=== PATIENT | female | born 1975 | race Caucasian/White ===

== ENCOUNTER 2016-12-21 23:15 | Emergency (ER) ==
[2016-12-21 23:22] VITALS: BP 127/90
--- NOTE | 2016-12-22 00:02 | PROVIDER DOCUMENTATION ---
HPI-Female /OB/Breast - General Chief Complaint: Female Stated Complaint: LOWER BACK PAIN, FEMALE Time Seen by Provider: 12/21/16 23:57 Source: reports: patient Allergies/Adverse Reactions: Patient Allergies Allergy/AdvReac Type Severity Reaction Status Date / Time butorphanol Allergy Severe ANAPHYLAXIS Verified 12/22/16 02:07 Penicillins Allergy Severe SHORTNESS Verified 12/22/16 02:07 OF BREATH Sulfa (Sulfonamide Allergy Severe ANAPHYLAXIS Verified 12/22/16 02:07 Antibiotics) [Sulfa(Sulfonamide Antibiotics)] butorphanol tartrate * Allergy Intermediate SHORTNESS Verified 12/22/16 02:07 [From Stadol] OF BREATH ketorolac tromethamine * Allergy Intermediate HIVES Verified 12/22/16 02:07 [From Toradol] latex AdvReac Unknown Verified 12/22/16 02:07 Home Medications: Home Medication List Medication Instructions Recorded Confirmed Last Taken Type Albuterol Sulfate Inhaler 2 puff INH [id number] #1 inhaler 11/28/16 1 Day Ago Rx [Ventolin Hfa] Albuterol [Albuterol Neb] 2.5 mg INH Q4H PRN PRN #1 neb 11/28/16 1 Day Ago Rx - History of Present Illness-Female /OB Nature of Presenting Problem: 41 y/o WF c/o vaginal bleeding, back pain, numbness, vaginal pain, L flank pain x 1 day. Pt states that she has gone through 10 pads in 10 hours. States that couldn't feel bilat LE earlier, but states she can feel them now, but reports that it is decreased. States hx of cervical cancer; managed by colposcopy clinic, but cannot state the name of any of the doctors. States that she was seen by them last month; reports will see them on 30 December for recheck. Denies any chemo or radiation. States has hx of kidney stones and thinks she may have a kidney stone. Review of Systems - Adult - REVIEW OF SYSTEMS - ADULT Constitutional: reports: no symptoms reported. denies: chills, fever Eyes: reports: no symptoms reported. denies: blurred vision, double vision Ears, Nose, Mouth & Throat: reports: no symptoms reported. denies: ear pain, nose pain Cardiovascular: reports: no symptoms reported. denies: chest pain, palpitations Respiratory: reports: no symptoms reported. denies: dyspnea on exertion, shortness of breath Gastrointestinal: reports: no symptoms reported. denies: abdominal pain, nausea , vomiting Genitourinary: reports: see HPI, other. denies: dysuria, frequency Musculoskeletal: reports: no symptoms reported. denies: joint pain, joint swelling Integumentary: reports: no symptoms reported. denies: nail changes, rash Neurological: reports: no symptoms reported. denies: numbness, paresthesia Psychiatric: reports: no symptoms reported Endocrine: reports: no symptoms reported. denies: cold intolerance, heat intolerance Hematologic/Lymphatic: reports: no symptoms reported. denies: easy bruising, prolonged bleeding Allergic/Immunologic: reports: no symptoms reported All Other Systems: Reviewed and Negative Past History - Adult - PAST MEDICAL HISTORY-ADULT Review of Records: reports: Nursing Assessment Review, Medications Reviewed Major Childhood Illnesses: reports: denies history Cardiovascular: reports: hyperlipidemia Respiratory: reports: asthma, COPD, sleep apnea Gastrointestinal: reports: GERD Obstetrical/Gynecological: reports: uterine/ovarian cancer (cervical cancer) Genitourinary: reports: denies history Musculoskeletal: reports: chronic pain, intervertebral disc disease Neurological: Psychiatric: reports: anxiety, depression, psychiatric problems (panic attacks) Endocrine/Immune: reports: denies history Other Conditions: reports: denies history - PRIOR SURGERIES/PROCEDURES Surgical/Procedure History: reports: appendectomy, cholecystectomy, back/neck - PRIOR HOSPITALIZATIONS Prior Hospitalizations: reports: none - IMMUNIZATION STATUS Childhood Immunizations: See Nurse Assessment Flu Vaccine: See Nurse Assessment - FAMILY HISTORY Family History: reviewed, not pertinent - SOCIAL HISTORY Smoking: quit less than 1 year Alcohol Use Frequency: never Physical Exam-General - PHYSICAL EXAM-ADULT Initial Vital Signs Reviewed: Yes - CONSTITUTIONAL General Appearance: alert, mild distress - EYES Eyes: pink conjunctivae - HEAD, EARS, NOSE, MOUTH & THROAT HENMT: normocephalic/atraumatic, moist mucous membranes - NECK Neck: normal inspection - RESPIRATORY Respiratory: no respiratory distress, no accessory muscle use, crackles. negative: rales, rhonchi, stridor, wheezing - CARDIOVASCULAR Cardiovascular: tachycardia. negative: bradycardia - GASTROINTESTINAL (ABDOMEN) Abdominal Exam: normal bowel sounds, soft, tenderness (LLQ). negative: distended, guarding, rigid - MUSCULOSKELETAL Back Exam: normal inspection, CVA tenderness (mild, L) Extremity: normal inspection. negative: abnormal NV exam - SKIN Integumentary: normal color, normal turgor, warm/dry - NEUROLOGIC Neurologic: negative: aphasia, motor weakness, sensory deficit - PSYCHIATRIC Psych/Mental Status: normal mood/affect, normal thought content, normal thought process, oriented x 3 Progress - PLAN OF CARE/RESULTS Progress/Plan/Lab Results: Orders Category Date Time Status NPO Diet 12/21/16 23:50 Completed Vital Signs Temp Pulse Resp BP Pulse Ox 12/21/16 23:22 97.7 F 108 H 20 127/90 99 butorphanol Allergy (Severe, Verified 11/28/16 15:57) ANAPHYLAXIS anaphylaxis Penicillins Allergy (Severe, Verified 11/28/16 15:57) SHORTNESS OF BREATH Sulfa (Sulfonamide Antibiotics) [Sulfa(Sulfonamide Antibiotics)] Allergy (Severe , Verified 11/28/16 15:57) ANAPHYLAXIS butorphanol tartrate * [From Stadol] Allergy (Intermediate, Verified 11/28/16 15 :57) SHORTNESS OF BREATH ketorolac tromethamine * [From Toradol] Allergy (Intermediate, Verified 15:57) HIVES latex Adverse Reaction (Verified 11/28/16 15:57) Unknown Albuterol Sulfate Inhaler [Ventolin Hfa] 2 puff INH [id number] #1 inhaler 11/28/16 Albuterol [Albuterol Neb] 2.5 mg INH Q4H PRN PRN #1 neb 11/28/16 Pt was initially seen and hx/PE performed in traige room 2 and sent out to [facility] while preliminary labwork was completed and waiting on exam room. Pt eloped prior to bloodwork being drawn; hr receptionist witnessed her get out of her wheelchair and walk out. Departure - Departure Time of Disposition Order: 00:15 DIAGNOSIS: Abdominal pain Qualifiers: Abdominal location: unspecified location Qualified Code(s): R10.9 - Unspecified abdominal pain Disposition: ELOPEMENT 07 Certified Medical Emergency: Emergent Condition: Stable Referrals: Anitra Garcia [Primary Care Provider] - Attestation - Physician/ HINA Attestation Patient care was provided by Advanced Practice Provider:: Yes Advanced Practice Provider:: Yue Barreto Advanced Practice Provider documentation review:: The Mid-level provider documentation, treatment plan and medical decision making was reviewed by the physician who agrees with all treatment and medical decision making by the MLP.
== END 2016-12-22 00:34 | disposition left against medical advice (07) ==
LOC: ED 23:15
DX: R10.32 Left lower quadrant pain (principal); N93.9 Abnormal uterine and vaginal bleeding, unspecified; M54.9 Dorsalgia, unspecified; R20.0 Anesthesia of skin; R10.2 Pelvic and perineal pain; E78.5 Hyperlipidemia, unspecified; J44.9 Chronic obstructive pulmonary disease, unspecified; C53.9 Malignant neoplasm of cervix uteri, unspecified; G89.29 Other chronic pain; Z87.891 Personal history of nicotine dependence; Z79.51 Long term (current) use of inhaled steroids

== ENCOUNTER 2016-12-22 00:47 | Emergency (ER) ==
[2016-12-22 02:07] VITALS: BP 139/83
[2016-12-22 02:15] LABS: URINE CULTURE PL NEEDED? NO; URINE SOURCE CLEAN CATCH
[2016-12-22 02:25] LABS: MANUAL DIFF NEEDED? NO
[2016-12-22 02:28] LABS: BILIRUBIN URINE NEGATIVE (NEGATIVE); BLOOD URINE 4+ (NEGATIVE); CLARITY CLEAR (CLEAR); COLOR YELLOW; GLUCOSE URINE NEGATIVE (NEGATIVE); LEUKOCYTES URINE NEGATIVE (NEGATIVE); NITRITE URINE NEGATIVE (NEGATIVE); PROTEIN URINE NEGATIVE (NEGATIVE); UROBILINOGEN URINE NORMAL
[2016-12-22 02:36] LABS: URINE EPITHELIAL CELLS <10 /HPF (<10); URINE RBC TNTC /HPF (<10); URINE WBC <10 /HPF (<10)
--- NOTE | 2016-12-22 02:36 | PROVIDER DOCUMENTATION ---
HPI-General Adult - General Source: patient - History of Present Illness -Gen Adult Nature of Presenting Problems: 41 YOF WITH HX OF KIDNEY STONES, PRESENTS TO ED WITH C/O PT STATES LT SIDE FLANK PAIN THAT HAS BEEN PRESENT ALL DAY LONG. Location of Pain/Injury: reports: back (LT) Pain Radiation: reports: flank (L) Quality of Pain: reports: aching Severity: reports: moderate Onset/Duration: reports: 4-6 hours ago Timing: reports: still present Modifying Factors: improves with: nothing Similar Symptoms Previously?: No Recently seen or treated by another doctor?: No <Vineet Mcfadden - Last Filed: 12/22/16 02:31> <Frandy Jones - Last Filed: 12/22/16 04:21> - General Chief Complaint: Back Pain Stated Complaint: LOW BACK PAIN Time Seen by Provider: 12/22/16 02:10 Allergies/Adverse Reactions: Patient Allergies Allergy/AdvReac Type Severity Reaction Status Date / Time butorphanol Allergy Severe ANAPHYLAXIS Verified 12/22/16 02:07 Penicillins Allergy Severe SHORTNESS Verified 12/22/16 02:07 OF BREATH Sulfa (Sulfonamide Allergy Severe ANAPHYLAXIS Verified 12/22/16 02:07 Antibiotics) [Sulfa(Sulfonamide Antibiotics)] butorphanol tartrate * Allergy Intermediate SHORTNESS Verified 12/22/16 02:07 [From Stadol] OF BREATH ketorolac tromethamine * Allergy Intermediate HIVES Verified 12/22/16 02:07 [From Toradol] latex AdvReac Unknown Verified 12/22/16 02:07 Home Medications: Home Medication List Medication Instructions Recorded Confirmed Last Taken Type Albuterol Sulfate Inhaler 2 puff INH [id number] #1 inhaler 11/28/16 1 Day Ago Rx [Ventolin Hfa] Albuterol [Albuterol Neb] 2.5 mg INH Q4H PRN PRN #1 neb 11/28/16 1 Day Ago Rx Review of Systems - Adult - REVIEW OF SYSTEMS - ADULT Constitutional: denies: chills, fever Eyes: reports: no symptoms reported Ears, Nose, Mouth & Throat: reports: no symptoms reported Cardiovascular: denies: chest pain, palpitations, syncope Respiratory: denies: cough, shortness of breath, wheezing Gastrointestinal: denies: abdominal pain, diarrhea, nausea, vomiting Genitourinary: reports: flank pain (LT) Musculoskeletal: denies: back pain, neck pain Integumentary: reports: no symptoms reported Neurological: denies: dizziness/vertigo, headache/migraines, syncope Psychiatric: reports: no symptoms reported Endocrine: reports: no symptoms reported Hematologic/Lymphatic: reports: no symptoms reported Allergic/Immunologic: reports: no symptoms reported All Other Systems: Reviewed and Negative <Vineet Mcfadden Last Filed: 12/22/16 02:31> Past History - Adult - PAST MEDICAL HISTORY-ADULT Review of Records: reports: Nursing Assessment Review, Medications Reviewed Cardiovascular: reports: hyperlipidemia Respiratory: reports: asthma, COPD, sleep apnea Gastrointestinal: reports: GERD Obstetrical/Gynecological: reports: uterine/ovarian cancer (cervical cancer) Musculoskeletal: reports: chronic pain, intervertebral disc disease Neurological: Psychiatric: reports: anxiety, depression, psychiatric problems (panic attacks) - PRIOR SURGERIES/PROCEDURES Surgical/Procedure History: reports: appendectomy, cholecystectomy, back/neck - PRIOR HOSPITALIZATIONS Prior Hospitalizations: reports: none - IMMUNIZATION STATUS Childhood Immunizations: See Nurse Assessment Flu Vaccine: See Nurse Assessment - FAMILY HISTORY Family History: reviewed, not pertinent - SOCIAL HISTORY Smoking: cigarettes, less than 1 pack/day Provider spent 3-5 mins advising pt. on dangers of tobacco.: Discussed manners to quit use, and f/u contacts for add'l counseling. Substance Use: denies Alcohol Use Frequency: never Living Situation: family <Vineet Mcfadden Filed: 12/22/16 02:31> Physical Exam-General - CONSTITUTIONAL General Appearance: alert, mild distress - EYES Eyes: PERRL/EOMI, pink conjunctivae - HEAD, EARS, NOSE, MOUTH & THROAT HENMT: normocephalic/atraumatic, moist mucous membranes - NECK Neck: non-tender, full range of motion, supple - RESPIRATORY Respiratory: chest non-tender, lungs clear, normal breath sounds - CARDIOVASCULAR Cardiovascular: normal peripheral pulses, tachycardia - GASTROINTESTINAL (ABDOMEN) Abdominal Exam: normal bowel sounds, non tender - LYMPHATIC Lymphatic: no adenopathy - MUSCULOSKELETAL Back Exam: normal inspection, no CVA tenderness, no vertebral tenderness Extremity: normal range of motion, non-tender - SKIN Integumentary: normal color, normal turgor, warm/dry - NEUROLOGIC Neurologic: grossly normal - PSYCHIATRIC Psych/Mental Status: oriented x 3 <Vineet Mcfadden - Last Filed: 12/22/16 02:31> Departure <Vineet Mcfadden - Last Filed: 12/22/16 02:31> - Departure Time of Disposition Order: 04:15 Certified Medical Emergency: Emergent <Frandy Jones - Last Filed: 12/22/16 04:21> - Departure DIAGNOSIS: Abdominal pain Disposition: ELOPEMENT 07 Condition: Stable Attestation - Scribe Verification/Attestation Scribe:: Vineet Mcfadden Acting as Scribe for:: Frandy Jones Scribe documention review:: This chart was documented by a scribe and accurately reflects the service the provider performed and the decisions made by the provider. <Vineet Mcfadden - Last Filed: 12/22/16 02:31> Physician Attestation
[2016-12-22 02:45] LABS: BASO% 0.4 % (0.0-0.8); EOS# 0.26 X1000 (0.0-0.7); EOS% 2.8 % (0.0-10.0); HEMOGLOBIN 14.4 g/dL (12.0-16.0); IMM GRAN# 0.02 X1000 (0.0-0.04); IMM GRAN% 0.2 % (0.0-0.5); LYMPH# 3.91 X1000 (1.2-3.4); LYMPH% 42.8 % (20.5-51.1); MCH 31.1 PG (27-31); MCHC 33.5 g/dL (33-37); MCV 92.9 FL (81-99); MONO% 7.7 % (1.7-9.3); NEUT% 46.1 % (42.2-75.2); PLT 277 X1000 (130-400); RBC 4.63 XMIL (4.2-5.4)
[2016-12-22 02:46] LABS: UR AMPHETAMINES QUAL NONE DETECTED (NONE DETECT); UR BARBITUATES QUAL NONE DETECTED (NONE DETECT); UR BENZODIAZEPIN QUAL PRESUMPTIVE POSITIVE (NONE DETECT); UR CANNABINOIDS QUAL NONE DETECTED (NONE DETECT); UR COCAINE QUAL NONE DETECTED (NONE DETECT); UR MDMA QUAL NONE DETECTED (NONE DETECT); UR METHADONE QUAL NONE DETECTED (NONE DETECT); UR METHAMPHETAMINE QUAL NONE DETECTED (NONE DETECT); UR OPIATES QUAL PRESUMPTIVE POSITIVE (NONE DETECT); UR OXYCODONE QUAL NONE DETECTED (NONE DETECT); UR PCP QUAL NONE DETECTED (NONE DETECT); UR TCA QUAL NONE DETECTED (NONE DETECT)
[2016-12-22 02:50] LABS: AGAP 12; ALBUMIN 3.9 g/dL (3.5-5.0); ALKALINE PHOSPHATASE 91 U/L (32-104); AMYLASE 51 U/L (20-200); BUN 7 mg/dL (8-22); CHLORIDE 104 mmol/L (98-107); COSMO 276; GOT 12 U/L (10-30); GPT 15 U/L (10-36); LIPASE 20 U/L (13-60); POTASSIUM 4.2 mmol/L (3.5-5.1); SODIUM 139 mmol/L (136-145); TCO2 23 mmol/L (25-35); TOTAL PROTEIN 6.9 g/dL (6.3-8.3)
== END 2016-12-22 04:21 | disposition left against medical advice (07) ==
LOC: P.ED 00:47
DX: R10.9 Unspecified abdominal pain (principal); M54.5 Low back pain; E78.5 Hyperlipidemia, unspecified; J44.9 Chronic obstructive pulmonary disease, unspecified; K21.9 Gastro-esophageal reflux disease without esophagitis; C53.9 Malignant neoplasm of cervix uteri, unspecified; G89.29 Other chronic pain; F41.9 Anxiety disorder, unspecified; F32.9 Major depressive disorder, single episode, unspecified; F41.0 Panic disorder [episodic paroxysmal anxiety]; F17.210 Nicotine dependence, cigarettes, uncomplicated; Z71.6 Tobacco abuse counseling; R00.0 Tachycardia, unspecified; Z79.51 Long term (current) use of inhaled steroids
CPT/HCPCS: 80053; 80305; 81001; 82150; 83690; 85025; 99283

== ENCOUNTER 2019-11-01 21:39 | Inpatient (IN) ==
[2019-11-01] MEDS ORDERED: DUONEB (A & A) INH ONE (21:55)
--- NOTE | 2019-11-01 22:20 | PROVIDER DOCUMENTATION ---
HPI-Respiratory General - General Chief Complaint: Asthma Attack Stated Complaint: SOB Time Seen by Provider: 11/01/19 21:54 Source: patient Allergies/Adverse Reactions: Patient Allergies Allergy/AdvReac Type Severity Reaction Status Date / Time butorphanol Allergy Severe ANAPHYLAXIS Verified 11/01/19 21:54 Penicillins Allergy Severe SHORTNESS Verified 11/01/19 21:54 OF BREATH Sulfa (Sulfonamide Allergy Severe ANAPHYLAXIS Verified 11/01/19 21:54 Antibiotics) [Sulfa(Sulfonamide Antibiotics)] butorphanol tartrate * Allergy Intermediate SHORTNESS Verified 11/01/19 21:54 [From Stadol] OF BREATH iodine Allergy Intermediate SHORTNESS Verified 11/01/19 21:54 OF BREATH ketorolac tromethamine * Allergy Intermediate HIVES Verified 11/01/19 21:54 [From Toradol] Bleach (Sodium Hypochlorite) Allergy ANAPHYLAXIS Verified 11/01/19 21:54 latex AdvReac Mild HIVES Verified 11/01/19 21:54 Home Medications: Home Medication List Medication Instructions Recorded Confirmed Last Taken Type Albuterol Sulfate 2.5 mg INHALATION Q4H PRN PRN #30 06/15/19 11/01/19 07/01/19 Rx vial.neb Albuterol Sulfate Inhaler 2 puff INH PRN PRN 07/03/19 11/01/19 07/02/19 History [Ventolin Hfa] - History of Present Illness-Resp Nature of Presenting Problem: 44 YOF WITH PMH OF COPD, ASTHMA PRESENTS WITH C/O WHEEZINS, SOB, COUGH WITH GREEN BROWN SPUTUM, VICK X 3 DAYS. DAUGHTER HAS THE SAME SYMPTOMS Quality of Pain: reports: none Severity in ED: reports: moderate Onset/Duration: reports: 3 days ago Timing: reports: still present Cough Quality/Degree: reports: moderate Episode Frequency: frequent episodes Current Respiratory Medication Therapy: Initiated none, Initiated steroid inhaler Modifying Factors: improves with: rest. worse with: exertion, coughing Associated Symptoms: reports: cough, short of breath, wheezing Similar Symptoms Previously?: No Recently seen or treated by another doctor?: No Review of Systems - Adult - REVIEW OF SYSTEMS - ADULT Constitutional: reports: no symptoms reported. denies: see HPI, chills, fever, fatique, night sweats, weight gain, weight loss, other Eyes: reports: no symptoms reported. denies: see HPI, discharge, dry eyes, decreased vision, blurred vision, double vision, eye pain, redness, other Ears, Nose, Mouth & Throat: reports: no symptoms reported. denies: see HPI, ear discharge, ear pain, hearing loss, tinnitus, epistaxis, sinus problem, nose pain, loose teeth, mouth/dental pain, mouth swelling, hoarseness, throat pain, t hroat swelling, other Cardiovascular: reports: no symptoms reported. denies: see HPI, chest pain, edema, heart murmur, irregular heart rate, orthopnea, palpitations, poor cir culation, PND, syncope, other Respiratory: reports: see HPI, cough, shortness of breath, wheezing. denies: no symptoms reported, chronic cough, dyspnea on exertion, excessive sputum production, hemoptysis, pleurisy, other Gastrointestinal: reports: no symptoms reported. denies: see HPI, abdominal pain, hematemesis, constipation, diarrhea, difficulty swallowing, frequent heartburn, nausea, poor appetite, rectal bleeding, vomiting, other Genitourinary: reports: no symptoms reported. denies: see HPI, dysuria, discharge, frequency, flank pain, frequent UTI's, hematuria, hesitency, incontinence, urinary retention, urgency, other Musculoskeletal: reports: no symptoms reported. denies: see HPI, bone pain, back pain, frequent leg cramps, joint pain, joint swelling, muscle aches, muscle weakness, neck pain, other Integumentary: reports: no symptoms reported. denies: see HPI, hives, hair loss , itching, mole changes, nail changes, rash, skin sores/ulcer, skin thickening, other Neurological: reports: no symptoms reported. denies: see HPI, ataxia, dizziness/vertigo, headache/migraines, loss of balance, numbness, paresthesia, seizure, slurred speech, syncope, tremors, other Psychiatric: reports: no symptoms reported. denies: see HPI, anxiety, anti- depressant use, alcohol/drug dependence, depression, emotional problems, insomnia, panic attacks, suicidal thoughts, other Endocrine: reports: no symptoms reported. denies: see HPI, change in skin pigment, excessive sweating, goiter, cold intolerance, heat intolerance, increased hunger, increased thirst, polyuria, other Hematologic/Lymphatic: reports: no symptoms reported. denies: see HPI, blood clots, easy bruising, low blood count, lymphedema, prolonged bleeding, swollen lymph nodes, transfusions, other Allergic/Immunologic: reports: no symptoms reported. denies: see HPI, allergic reactions, allergic rhinitis, asthma, eczema, food allergy, frequent infections, hay fever, hives, positive PPD, urticaria, other Past History - Adult - PAST MEDICAL HISTORY-ADULT Review of Records: reports: Nursing Assessment Review, Social history reviewed & non-contributory. Major Childhood Illnesses: reports: denies history, other (PDMP query reveals last filled Rx 12/[address] Wilson ([place]).) Cardiovascular: reports: hyperlipidemia Respiratory: reports: asthma, COPD, sleep apnea Gastrointestinal: reports: GERD Obstetrical/Gynecological: reports: uterine/ovarian cancer (cervical cancer) Genitourinary: reports: denies history Musculoskeletal: reports: chronic pain, intervertebral disc disease Neurological: Psychiatric: reports: anxiety, depression, psychiatric problems (panic attacks) Endocrine/Immune: reports: denies history Other Conditions: reports: denies history - PRIOR SURGERIES/PROCEDURES Surgical/Procedure History: reports: appendectomy, cholecystectomy, back/neck - PRIOR HOSPITALIZATIONS Prior Hospitalizations: reports: none - IMMUNIZATION STATUS Childhood Immunizations: See Nurse Assessment Flu Vaccine: See Nurse Assessment - FAMILY HISTORY Family History: reviewed, not pertinent Physical Exam-General - PHYSICAL EXAM-ADULT Initial Vital Signs Reviewed: Yes - CONSTITUTIONAL General Appearance: alert, no apparent distress - EYES Eyes: PERRL/EOMI, pink conjunctivae - HEAD, EARS, NOSE, MOUTH & THROAT HENMT: normocephalic/atraumatic, moist mucous membranes, normal ENT inspection - NECK Neck: non-tender, full range of motion, supple - RESPIRATORY Respiratory: chest non-tender, no pleuratic chest pain, no respiratory distress, no accessory muscle use, wheezing (EXPIRATORY) - CARDIOVASCULAR Cardiovascular: normal peripheral pulses, regular rate, rhythm, no edema, no gallop, no JVD, no murmur - GASTROINTESTINAL (ABDOMEN) Abdominal Exam: normal bowel sounds, non tender, soft - LYMPHATIC Lymphatic: no adenopathy - MUSCULOSKELETAL Back Exam: normal inspection, no CVA tenderness, no vertebral tenderness Extremity: normal range of motion, non-tender, normal gait, normal inspection Peripheral Pulses: radial (R): 2+, radial (L): 2+ - SKIN Integumentary: normal color, normal turgor, warm/dry - NEUROLOGIC Neurologic: grossly normal - PSYCHIATRIC Psych/Mental Status: normal mood/affect, oriented x 3 Progress - PLAN OF CARE/RESULTS Progress/Plan/Lab Results: Vital Signs - 8 hr 11/01/19 21:50 11/01/19 22:15 11/01/19 23:05 Temperature 98.0 F Pulse Rate 114 H 114 H 105 H Respiratory Rate 18 20 18 Blood Pressure 118/65 122/79 O2 Sat by Pulse Oximetry 96 93 L 11/02/19 00:47 11/02/19 00:49 Temperature 98.8 F Pulse Rate 95 H 96 H Respiratory Rate 12 12 Blood Pressure 120/86 O2 Sat by Pulse Oximetry 88 L 98 Laboratory Results - last 24 hr 11/01/19 11/01/19 11/01/19 21:55 21:55 22:44 WBC 8.02 RBC 4.81 Hgb 14.1 Hct 43.6 MCV 90.6 MCH 29.3 MCHC 32.3 L RDW Std Deviation 13.9 Plt Count 257 MPV 11.3 H Immature Gran % (Auto) 0.2 Neut % (Auto) 43.3 Lymph % (Auto) 37.5 [place] % (Auto) 13.1 H Eos % (Auto) 5.2 Baso % (Auto) 0.7 Immature Gran # (Auto) 0.02 Neut # (Auto) 3.46 Lymph # (Auto) 3.01 [place] # (Auto) 1.05 H Eos # (Auto) 0.42 Baso # (Auto) 0.06 Specimen Type Sample Site pH pCO2 pO2 HCO3 Base Excess Oxyhemoglobin ABG O2 Sat (Calculated) ABG O2 Saturation ABG Carboxyhemoglobin ABG Methemoglobin A-a O2 Difference Total Hemoglobin Lactate Liter Flow Blood Gas Modality FiO2 % Sodium Potassium Chloride Carbon Dioxide Anion Gap BUN Creatinine Estimated GFR/1.73 m2 BUN/Creatinine Ratio Glucose Calculated Osmolality Calcium Total Bilirubin AST ALT Alkaline Phosphatase Total Protein Albumin Globulin Albumin/Globulin Ratio Influenza A (Rapid) NEGATIVE Influenza B (Rapid) NEGATIVE Group A Strep Rapid NEGATIVE 11/01/19 11/02/19 22:44 00:42 WBC RBC Hgb Hct MCV MCH MCHC RDW Std Deviation Plt Count MPV Immature Gran % (Auto) Neut % (Auto) Lymph % (Auto) [place] % (Auto) Eos % (Auto) Baso % (Auto) Immature Gran # (Auto) Neut # (Auto) Lymph # (Auto) [place] # (Auto) Eos # (Auto) Baso # (Auto) Specimen Type ARTERIAL Sample Site R BRACHIAL pH 7.45 pCO2 41 pO2 56 L HCO3 27.9 H Base Excess 4.1 H Oxyhemoglobin 89.7 L* ABG O2 Sat (Calculated) 18.8 ABG O2 Saturation 95.0 ABG Carboxyhemoglobin 4.70 H ABG Methemoglobin 1.0 A-a O2 Difference 92.0 Total Hemoglobin 14.9 Lactate 1.30 Liter Flow 2.0 Blood Gas Modality CANNULA FiO2 % 28.0 Sodium 139 Potassium 4.0 Chloride 99 Carbon Dioxide 26 Anion Gap 14 BUN 7 L Creatinine 0.7 Estimated GFR/1.73 m2 > 60 BUN/Creatinine Ratio 10 Glucose 136 H Calculated Osmolality 278 Calcium 9.2 Total Bilirubin < 0.15 L AST 20 ALT 22 Alkaline Phosphatase 87 Total Protein 7.6 Albumin 4.4 Globulin 3.0 Albumin/Globulin Ratio 1.0 Influenza A (Rapid) Influenza B (Rapid) Group A Strep Rapid Orders Category Date Time Status Admit - [facility] Routine AdmDCTranf 11/02/19 01:05 Active Activity - Bed Rest with BRP ORDERED Care 11/02/19 01:07 Active Call Admitting on Arrival AT ADMISSION Care 11/02/19 01:07 Active Neurological Check Q4H Care 11/02/19 01:07 Active Saline Loc DIRECTED Care 11/02/19 01:07 Active Vital Signs Order ROUTINE Care 11/02/19 01:07 Active Z-Document. for Tele Applied ORDERED Care 11/02/19 01:09 Active Heart Healthy Diet Diet 11/02/19 01:08 Active CHEST-2 VIEWS [RAD] Stat Exams 11/01/19 21:55 Taken ABG [RESP] Routine Lab 11/01/19 23:20 Completed BLOOD CULTURE [BLDCUL] Stat Lab 11/02/19 00:51 Uncollected CBC WITH ELECTRONIC DIFF [HEME] Stat Lab 11/01/19 22:44 Completed CMP [COMPREHENSIVE METABOLIC PANEL] [CHEM] Stat Lab 11/01/19 22:[address] Stat Lab 11/01/19 21:[address] Stat Lab 11/01/19 21:55 Completed LACTATE, PLASMA [CHEM] Stat Lab 11/02/19 00:51 Uncollected Albuterol 2.5MG/Ipratrop 0.5MG [Duoneb (A & A)] Med 11/01/19 21:55 Discontinued 3 ml INH NOW ONE Albuterol 2.5MG/Ipratrop 0.5MG [Duoneb (A & A)] Med 11/02/19 03:30 Active 3 ml INH RTQ4H Diphenhydramine [Benadryl] Med 11/01/19 23:19 Discontinued 25 mg IV NOW ONE Levofloxacin 500 mg/D5w [Levaquin 500 mg/D5w] Med 11/02/19 00:51 Active 500 mg in 100 ml IV NOW Meperidine [Demerol] Med 11/02/19 00:36 Discontinued 25 mg IV NOW ONE Methylprednisolone Sod Succ [Solu-Medrol] Med 11/01/19 23:20 Discontinued 125 mg IV NOW ONE Ondansetron [Zofran] Med 11/02/19 00:36 Discontinued 4 mg IV NOW ONE Ondansetron [Zofran] Med 11/02/19 01:07 Active 4 mg IV Q6H PRN PRN Prochlorperazine [Compazine] Med 11/01/19 23:19 Discontinued 10 mg IV NOW ONE Aerosol Treatments Routine Oth 11/01/19 21:55 Completed Aerosol Treatments Routine Oth 11/02/19 01:09 Active Aerosol Treatments Stat Oth 11/01/19 21:55 Completed Aerosol Treatments Stat Oth 11/02/19 01:09 Active Oxygen Device Routine Oth 11/02/19 01:07 Active Telemetry [OM.EQ] Routine Oth 11/02/19 01:07 Active EKG [EKG] Stat Ther 11/02/19 00:57 Ordered Transfer/Admit Order [TRANSFER] Routine Transfer 11/02/19 01:06 Ordered 2300: PT HAS REQUESTED TO SEE , NOTIFIED DR WEIR, HE WILL SEE. Sats noted to be 88-89% on RA at recheck. Result Diagrams: 11/01/19 22:44 11/01/19 22:44 - CONSULTS/PCP/HOSPITALIST Notification #1 *Consult/PCP/Hospitalist*: Dr Godinez Time Discussed: :25 Consult Disposition: Admit Departure - Departure Date of Disposition Decision: 11/02/19 Time of Disposition Decision: 00:56 DIAGNOSIS: COPD exacerbation, Pneumonia Disposition: ADMITTED INPATIENT 09 Certified Medical Emergency: Emergent Condition: Fair Referrals and Follow-Ups: Anitra Garcia [Primary Care Provider] - - Critical Care Note This patient required my direct & personal management of CC.: No Attestation - Physician/ HINA Attestation Patient care was provided by Advanced Practice Provider:: Yes Advanced Practice Provider documentation review:: The Mid-level provider documentation, treatment plan and medical decision making was reviewed by the physician who agrees with all treatment and medical decision making by the MLP. The physician spent face to face time with patient:: Yes Advanced Practice Provider documentation review:: Supervising physician onsite and consulted in the evaluation and care of this patient. The physician did have a face to face encounter with the patient.
[2019-11-01 22:27] LABS: INFLUENZA A NEGATIVE (NEGATIVE); INFLUENZA B NEGATIVE (NEGATIVE)
[2019-11-01 23:07] LABS: AGAP 14; ALBUMIN 4.4 g/dL (3.5-5.0); ALKALINE PHOSPHATASE 87 U/L (32-104); BUN 7 mg/dL (8-22); CALCIUM 9.2 mg/dL (8.8-10.2); CHLORIDE 99 mmol/L (98-107); COSMO 278; CREATININE 0.7 mg/dL (0.5-0.9); ESTIMATED GFR > 60; GLUCOSE 136 mg/dL (70-104); GOT 20 U/L (10-30); GPT 22 U/L (10-36); SODIUM 139 mmol/L (136-145); TCO2 26 mmol/L (25-35); TOTAL BILIRUBIN < 0.15 mg/dL (0.20-1.00); TOTAL PROTEIN 7.6 g/dL (6.3-8.3)
[2019-11-01 23:08] LABS: BASO# 0.06 X1000 (0.0-0.2); BASO% 0.7 % (0.0-0.8); EOS# 0.42 X1000 (0.0-0.7); EOS% 5.2 % (0.0-10.0); HEMATOCRIT 43.6 % (37.0-47.0); HEMOGLOBIN 14.1 g/dL (12.0-16.0); IMM GRAN# 0.02 X1000 (0.0-0.04); IMM GRAN% 0.2 % (0.0-0.5); LYMPH# 3.01 X1000 (1.2-3.4); LYMPH% 37.5 % (20.5-51.1); MCH 29.3 PG (27-31); MCHC 32.3 g/dL (33-37); MCV 90.6 FL (81-99); MONO# 1.05 X1000 (0.11-0.59); MONO% 13.1 % (1.7-9.3); MPV 11.3 FL (7.4-10.4); NEUT# 3.46 X1000 (1.4-6.5); NEUT% 43.3 % (42.2-75.2); PLT 257 X1000 (130-400); RBC 4.81 XMIL (4.2-5.4); RDW 13.9 % (11.5-14.5); WBC 8.02 X1000 (4.8-10.8)
[2019-11-01] MEDS ORDERED: COMPAZINE IV ONE (23:19)
[2019-11-01] MEDS ORDERED: BENADRYL IV ONE (23:19)
[2019-11-01] MEDS ORDERED: SOLU-MEDROL IV ONE (23:20)
[2019-11-02] MEDS: DEMEROL IV ONE ×2 (00:36→00:41)
[2019-11-02] MEDS: ZOFRAN IV ONE ×2 (00:36→00:41)
[2019-11-02] MEDS ORDERED: LEVAQUIN 500 MG/D5W 500 MG/100 ML IVPB IV ONE (00:51)
[2019-11-02 00:53] LABS: BE 4.1 mmoll (-3.0-3.0); BLOOD TYPE ARTERIAL; HCO3-(ACT) 27.9 mmoll (20.0-26.0); O2(CT) 18.8 mL/dL (15.0-23.0); PCO2(98.6) 41 mmHg (35-45); PO2(98.6) 56 mmHg (60-100); SAMPLE BLOOD; THB 14.9 g/dL (11.5-17.4); pH(98.6) 7.45 (7.35-7.45)
[2019-11-02 00:57] LABS: MODALITY CANNULA; O2HB 89.7 % (95.0-99.0)
[2019-11-02] MEDS ORDERED: ZOFRAN IV PRN (01:07)
[2019-11-02] MEDS: DUONEB (A & A) INH SCH ×3 (03:51→07:59)
[2019-11-02 04:01] VITALS: BP 114/56
[2019-11-02 04:27] LABS: AGAP 14; ALBUMIN 4.1 g/dL (3.5-5.0); ALKALINE PHOSPHATASE 87 U/L (32-104); BUN 8 mg/dL (8-22); CHLORIDE 101 mmol/L (98-107); COSMO 280; CREATININE 0.7 mg/dL (0.5-0.9); ESTIMATED GFR > 60; GLUCOSE 168 mg/dL (70-104); GOT 19 U/L (10-30); GPT 21 U/L (10-36); POTASSIUM 4.2 mmol/L (3.5-5.1); SODIUM 139 mmol/L (136-145); TCO2 24 mmol/L (25-35); TOTAL PROTEIN 7.4 g/dL (6.3-8.3)
[2019-11-02 04:30] LABS: BASO# 0.04 X1000 (0.0-0.2); BASO% 0.6 % (0.0-0.8); EOS# 0.07 X1000 (0.0-0.7); HEMATOCRIT 42.3 % (37.0-47.0); HEMOGLOBIN 13.5 g/dL (12.0-16.0); IMM GRAN# 0.02 X1000 (0.0-0.04); IMM GRAN% 0.3 % (0.0-0.5); LYMPH# 1.51 X1000 (1.2-3.4); LYMPH% 22.3 % (20.5-51.1); MCHC 31.9 g/dL (33-37); MONO# 0.26 X1000 (0.11-0.59); MONO% 3.8 % (1.7-9.3); MPV 11.1 FL (7.4-10.4); NEUT# 4.86 X1000 (1.4-6.5); PLT 245 X1000 (130-400); RBC 4.65 XMIL (4.2-5.4); RDW 13.9 % (11.5-14.5); WBC 6.76 X1000 (4.8-10.8)
[2019-11-02] MEDS ORDERED: SOLU-MEDROL IV SCH (06:00)
--- NOTE | 2019-11-02 08:36 | Diag Imaging Result Doc PS360 ---
EXAM: CHEST-2 VIEWS HISTORY: WHEEZING, SOB TECHNIQUE: PA and Lateral chest x-ray COMPARISON: 07/31/2019 FINDINGS: The cardiomediastinal silhouette is within normal limits. There has been a suboptimal inspiration. There are prominent interstitial markings throughout both lungs. There are vague patchy infiltrates in both lung bases. Right hilar prominence could represent adenopathy or may be accentuated by low lung volumes. No pleural effusions. Peripheral left granuloma appears stable. IMPRESSION: Nonspecific interstitial and alveolar infiltrates. Right hilar prominence. Electronically signed by Janel Tripathi 11/02/2019 8:33 AM
--- NOTE | 2019-11-02 12:16 | HISTORY AND PHYSICAL ---
PRIMARY CARE PHYSICIAN: Dr. Anitra Garcia. CHIEF COMPLAINT: Shortness of breath. HISTORY OF PRESENT ILLNESS: Ms. Saeed is a 44-year-old, female, who presents with past medical history of COPD, hyperlipidemia, situational anxiety and depression, sleep apnea, GERD, degenerative disk disease, morbid obesity, and cervical cancer status post mass removal. Patient presents to the ER with complaints of shortness of breath, cough with brown green sputum, wheezing, orthopnea, PND, headache, sore throat, chills and fever of 103, nausea, vomiting, dizziness and occasional lightheadedness for approximately 3 days. The patient does also admit to having occasional syncopal episodes when she laughs, but states that this is chronic. The patient denies any weight change, vision changes, rhinorrhea, neck pain, excessive thirst, chest pain, palpitations, leg edema, hemoptysis, anorexia, constipation, diarrhea, dysphagia, dysuria, hematuria, numbness or any other pertinent symptoms at this time. REVIEW OF SYSTEMS: A 10 point review of systems has been obtained and are negative, except what is stated above in the HPI. PAST MEDICAL HISTORY: 1. Chronic obstructive pulmonary disease. 2. Hyperlipidemia. 3. Situational anxiety and depression. 4. Cervical cancer status post mass removal. 5. Sleep apnea. 6. GERD. 7. Degenerative disk disease. 8. Herniated disk. 9. Morbid obesity. PAST SURGICAL HISTORY: 1. Appendectomy. 2. Cholecystectomy. 3. C-spine surgery. 4. Back surgery x6. 5. Cervical mass removal. FAMILY HISTORY: Father with diabetes and OR. Mother with back surgery. SOCIAL HISTORY: The patient does live in [place], [place]. She smokes a pack a day of cigarettes and has for greater than 20 years. She denies any alcohol or illicit drug use. She does live with several family members. She does occasionally still work. However, she cannot afford CPAP mask, as she does not have any health insurance. The patient states she was at 1 time on home oxygen, but she is not now. She does use nebulizers at home. [facility] [place]. ALLERGIES: 1. Sulfa drugs. 2. Penicillin. 3. Latex. 4. Stadol. 5. Toradol. 6. Iodine. 7. Bleach. 8. Latex. HOME MEDICATIONS: 1. Albuterol nebulizers q. 4 hours p.r.n. 2. Albuterol inhaler 2 puffs inhaled as needed. 3. Prilosec 40 mg p.o. daily. PHYSICAL EXAMINATION: VITAL SIGNS: Temperature 98.0 degrees, pulse rate 114, respiratory rate 18, blood pressure 118/65, O2 saturation 96% on room air. GENERAL: This is a 44-year-old, female. She is sitting in the hospital bed. She is in no acute distress at present time. She is well nourished and well developed. She is morbidly obese. HEENT: Atraumatic, normocephalic. Pupils equal, round, reactive to light. Mucous membranes are moist. NECK: Supple. No lymphadenopathy. Trachea is midline. No JVD. CV: Regular rate and rhythm. No murmurs, gallops, or rubs appreciated. RESPIRATORY: Lung sounds are diminished. The patient is not moving much air. However, I think this is voluntarily. Respirations are nonlabored. There is no accessory muscle usage. GI/ABDOMEN: Large, is nontender, nondistended. Bowel sounds are present x4. Abdomen is soft. : There is no CVA tenderness noted. The patient is voiding without difficulty. NEUROLOGIC: Patient is awake, alert and oriented, able to follow all commands appropriately. She is deferring answers to some of my questions. This is voluntary. No deficits noted. MUSCULOSKELETAL: Full distal strength noted. No abnormalities, no deformities. EXTREMITIES: No clubbing, no cyanosis, no edema. DP and PT pulses are present and palpable. SKIN: Warm, dry, and intact. No rashes. No bruises. No diaphoresis. LABS AND DIAGNOSTICS: White blood cell count 8.02, hemoglobin 14.1, hematocrit 43.6, platelet count 257. A pH 7.45, pCO2 41, PO2 56, bicarbonate 27.9, oxyhemoglobin 89.7, O2 saturation 95%, carboxyhemoglobin 4.7, lactate 1.3 (this is on 2 L nasal cannula). Sodium 139, potassium 4, BUN 7, creatinine 0.7, glucose 136. Influenza A and B is negative. Group strep A negative. Chest x- ray is nonspecific interstitial and alveolar infiltrates with right hilar prominence. ASSESSMENT: 1. Chronic obstructive pulmonary disease with acute exacerbation. 2. Bilateral pneumonia. 3. Situational anxiety and depression. 4. Morbid obesity. 5. Gastroesophageal reflux disease. 6. Chronic pain with degenerative disk disease. 7. Sleep apnea. 8. History of cervical cancer with removal. PLAN: This patient was admitted to the medical floor throughout the night. We have placed her on city mail carrier and a regular diet. We will obtain vital signs routine. Blood cultures were obtained. We have placed her on Levaquin intravenous every 24 hours, Solu-Medrol, DuoNeb, and supplemental O2. We will repeat labs in the am and a chest xray. Provide p.r.n. nausea medication and tylenol. All other further treatment pending hospital course and laboratory data. Dictated by PLACIDO Spivey for Eduar Godinez MD cc: MD Anitra Justin MD MTDD
--- NOTE | 2019-11-03 02:37 | HISTORY AND PHYSICAL ---
ADDENDUM: Patient seen and examined by myself. Full note dictated and discussed with nurse practitioner. The patient presented to the hospital. States she has a known history of COPD and asthma. She has been having a headache for 3 days, cough with greenish sputum. She was seen in the ER, was noted to be hypoxic with an O2 saturation of 88% on room air. She was placed in the hospital for treatment. cc: Eduar Godinez MD
--- NOTE | 2019-11-03 21:07 | DISCHARGE SUMMARY ---
ADMISSION DATE: 11/02/2019 DISCHARGE DATE: 11/02/2019 Patient refused to stay in the hospital even long enough to get scrubs brought to her from downstairs in the ER. Approximately 10 minutes after we left her room, she declared to the staff that she was leaving and needed clothes because she had wet her clothes. They had offered to go downstairs to the ER and get scrubs for her. However, she refused to stay in the hospital even that long. Unfortunately, we were not able to give her any prescription medication or any further discharge instructions as she refused anything on discharge. In fact, even on admission, she refused to answer most questions. cc: Eduar Godinez MD
== END 2019-11-02 08:31 | disposition left against medical advice (07) | DRG 194 ==
LOC: P.ED 21:39 → P.MEDSURG 11-02 01:27
PROVIDERS: ATTEND Family Medicine

== ENCOUNTER 2019-11-03 15:20 | Inpatient (IN) ==
--- NOTE | 2019-11-03 15:46 | EKG Report ---
Test Performed on : 11/03/2019 3:36:11 PM Test Reason : SOB Blood Pressure : / mmHG Vent. Rate : 103 BPM Atrial Rate : 103 BPM P-R Int : 122 ms QRS Dur : 082 ms QT Int : 342 ms P-R-T Axes : 025 044 028 degrees QTc Int : 448 ms Sinus tachycardia. Otherwise normal ECG When compared with ECG of 31-JUL-2019 17:29, Left posterior fascicular block is no longer present Criteria for Inferior infarct are no longer present Nonspecific T wave abnormality, improved in Inferior leads Unconfirmed Result
--- NOTE | 2019-11-03 16:04 | Diag Imaging Result Doc PS360 ---
EXAM: CHEST-1 VIEW HISTORY: POSSIBLE SEPSIS TECHNIQUE: Single view COMPARISON: 11/01/2019 FINDINGS: The lungs are well expanded. The heart is not enlarged. The vessels are not distended. There are hazy bilateral infiltrates. No effusion identified. IMPRESSION: Persistent hazy infiltrates with no interval improvement Electronically signed by Alli White 11/03/2019 4:02 PM
[2019-11-03 16:07] LABS: BASO# 0.16 X1000 (0.0-0.2); EOS# 0.05 X1000 (0.0-0.7); EOS% 0.3 % (0.0-10.0); HEMATOCRIT 42.6 % (37.0-47.0); IMM GRAN# 0.13 X1000 (0.0-0.04); IMM GRAN% 0.8 % (0.0-0.5); LYMPH% 29.3 % (20.5-51.1); MCHC 32.9 g/dL (33-37); MCV 91.4 FL (81-99); MONO# 0.89 X1000 (0.11-0.59); MONO% 5.8 % (1.7-9.3); MPV 11.4 FL (7.4-10.4); NEUT# 9.63 X1000 (1.4-6.5); NEUT% 62.8 % (42.2-75.2); PLT 289 X1000 (130-400); RBC 4.66 XMIL (4.2-5.4); RDW 14.3 % (11.5-14.5); WBC 15.36 X1000 (4.8-10.8)
[2019-11-03 16:50] LABS: AGAP 15; ALB/GLOB RATIO 1.1; ALBUMIN 4.2 g/dL (3.5-5.0); ALKALINE PHOSPHATASE 90 U/L (32-104); BUN 10 mg/dL (8-22); CALCIUM 9.8 mg/dL (8.8-10.2); CHLORIDE 100 mmol/L (98-107); CK PROFILE 107 U/L (24-173); COSMO 277; CREATININE 0.9 mg/dL (0.5-0.9); ESTIMATED GFR > 60; GLUCOSE 137 mg/dL (70-104); GOT 26 U/L (10-30); GPT 22 U/L (10-36); POTASSIUM 4.3 mmol/L (3.5-5.1); SODIUM 138 mmol/L (136-145); TCO2 23 mmol/L (25-35); TOTAL BILIRUBIN < 0.15 mg/dL (0.20-1.00); TOTAL PROTEIN 8.1 g/dL (6.3-8.3)
[2019-11-03 17:27] LABS: URINE SOURCE CLEAN CATCH
[2019-11-03] MEDS ORDERED: DUONEB (A & A) INH ONE (17:30)
[2019-11-03] MEDS ORDERED: DUONEB (A & A) INH PRN (17:34)
[2019-11-03 17:35] LABS: BILIRUBIN URINE NEGATIVE (NEGATIVE); BLOOD URINE TRACE (NEGATIVE); COLOR YELLOW; GLUCOSE URINE NEGATIVE (NEGATIVE); KETONE URINE NEGATIVE (NEGATIVE); LEUKOCYTES URINE NEGATIVE (NEGATIVE); NITRITE URINE NEGATIVE (NEGATIVE); PH URINE 5.5; PROTEIN URINE NEGATIVE (NEGATIVE); SP GRAVITY URINE 1.007; TURBIDITY URINE CLEAR (CLEAR); UR EPITHELIAL CELLS <10 /HPF (<10); URINE BACTERIA NEGATIVE /HPF; URINE RBC <10 /HPF (<10); URINE WBC <10 /HPF (<10); UROBILINOGEN URINE NORMAL (NORMAL)
[2019-11-03] MEDS ORDERED: ZOFRAN IV PRN (17:36)
[2019-11-03] MEDS ORDERED: TYLENOL PO PRN (17:36)
[2019-11-03 17:59] LABS: UR AMPHETAMINES QUAL NONE DETECTED (NONE DETECT); UR BARBITUATES QUAL NONE DETECTED (NONE DETECT); UR BENZODIAZEPIN QUAL PRESUMPTIVE POSITIVE (NONE DETECT); UR CANNABINOIDS QUAL NONE DETECTED (NONE DETECT); UR COCAINE QUAL NONE DETECTED (NONE DETECT); UR METHADONE QUAL NONE DETECTED (NONE DETECT); UR OPIATES QUAL NONE DETECTED (NONE DETECT); UR OXYCODONE QUAL NONE DETECTED (NONE DETECT); UR PCP QUAL NONE DETECTED (NONE DETECT)
--- NOTE | 2019-11-03 18:05 | PROVIDER DOCUMENTATION ---
This chart was entered by Britany Mireles Scribe, acting as scribe for Mesfin Nolen MD. HPI-Respiratory General - General Chief Complaint: SEPSIS ALERT - D Stated Complaint: PNEUMONIA Time Seen by Provider: 11/03/19 15:51 Source: patient Allergies/Adverse Reactions: Patient Allergies Allergy/AdvReac Type Severity Reaction Status Date / Time butorphanol Allergy Severe ANAPHYLAXIS Verified 11/01/19 21:54 Penicillins Allergy Severe SHORTNESS Verified 11/01/19 21:54 OF BREATH Sulfa (Sulfonamide Allergy Severe ANAPHYLAXIS Verified 11/01/19 21:54 Antibiotics) [Sulfa(Sulfonamide Antibiotics)] butorphanol tartrate * Allergy Intermediate SHORTNESS Verified 11/01/19 21:54 [From Stadol] OF BREATH iodine Allergy Intermediate SHORTNESS Verified 11/01/19 21:54 OF BREATH ketorolac tromethamine * Allergy Intermediate HIVES Verified 11/01/19 21:54 [From Toradol] Bleach (Sodium Hypochlorite) Allergy ANAPHYLAXIS Verified 11/01/19 21:54 latex AdvReac Mild HIVES Verified 11/01/19 21:54 Home Medications: Home Medication List Medication Instructions Recorded Confirmed Last Taken Type Albuterol Sulfate 2.5 mg INHALATION Q4H PRN PRN #30 06/15/19 11/01/19 07/01/19 Rx vial.neb Albuterol Sulfate Inhaler 2 puff INH PRN PRN 07/03/19 11/01/19 07/02/19 History [Ventolin Hfa] - History of Present Illness-Resp Nature of Presenting Problem: Patient is a 44 year female who presents with shortness of breath. States she was admitted last night to [facility] [place] after being diagnosed with pneumonia. Reports signing out AMA due to the nurses being rude. States going home and then she became nauseated and started vomiting. Denies chest pain. Quality of Pain: reports: none Severity in ED: reports: mild Onset/Duration: reports: gradual Timing: reports: still present, getting worse Associated Symptoms: reports: shortness of breath, other (nausea and vomiting) Similar Symptoms Previously?: Yes Recently seen or treated by another doctor?: Yes Review of Systems - Adult - REVIEW OF SYSTEMS - ADULT Constitutional: reports: no symptoms reported Eyes: reports: no symptoms reported Ears, Nose, Mouth & Throat: reports: no symptoms reported Cardiovascular: reports: no symptoms reported. denies: chest pain Respiratory: reports: see HPI, shortness of breath Gastrointestinal: reports: see HPI, nausea, vomiting Genitourinary: reports: no symptoms reported Musculoskeletal: reports: no symptoms reported Integumentary: reports: no symptoms reported Neurological: reports: no symptoms reported Psychiatric: reports: no symptoms reported Endocrine: reports: no symptoms reported Hematologic/Lymphatic: reports: no symptoms reported Allergic/Immunologic: reports: no symptoms reported All Other Systems: Reviewed and Negative Past History - Adult - PAST MEDICAL HISTORY-ADULT Review of Records: reports: Old Records Reviewed, Nursing Assessment Review, Medications Reviewed, Social history reviewed & non-contributory. Major Childhood Illnesses: reports: denies history, other (PDMP query reveals last filled Rx 12/[address] Wilson ([place]).) Cardiovascular: reports: hyperlipidemia Respiratory: reports: asthma, COPD, sleep apnea Gastrointestinal: reports: GERD Obstetrical/Gynecological: reports: uterine/ovarian cancer (cervical cancer) Genitourinary: reports: denies history Musculoskeletal: reports: chronic pain, intervertebral disc disease Neurological: Psychiatric: reports: anxiety, depression, psychiatric problems (panic attacks) Endocrine/Immune: reports: denies history Other Conditions: reports: denies history - PRIOR SURGERIES/PROCEDURES Surgical/Procedure History: reports: appendectomy, cholecystectomy, back/neck - PRIOR HOSPITALIZATIONS Prior Hospitalizations: reports: none - IMMUNIZATION STATUS Childhood Immunizations: See Nurse Assessment Flu Vaccine: See Nurse Assessment - FAMILY HISTORY Family History: reviewed, not pertinent - SOCIAL HISTORY Smoking: cigarettes (former) Substance Use: denies Physical Exam-General - PHYSICAL EXAM-ADULT Initial Vital Signs Reviewed: Yes - CONSTITUTIONAL General Appearance: alert, no apparent distress - RESPIRATORY Respiratory: chest non-tender, wheezing (expiratory wheezing in all lung marley.). negative: respiratory distress, increased rate - CARDIOVASCULAR Cardiovascular: regular rate, rhythm. negative: tachycardia, systolic murmur - GASTROINTESTINAL (ABDOMEN) Abdominal Exam: normal bowel sounds, non tender, soft - SKIN Integumentary: normal color, normal turgor, warm/dry - NEUROLOGIC Neurologic: grossly normal. negative: aphasia, facial droop - PSYCHIATRIC Psych/Mental Status: normal mood/affect, oriented x 3. negative: anxious Progress - PLAN OF CARE/RESULTS Progress/Plan/Lab Results: Vital Signs - 8 hr 11/03/19 15:25 Temperature 98.6 F Pulse Rate 105 H Respiratory Rate 22 Blood Pressure 109/54 O2 Sat by Pulse Oximetry 98 Laboratory Results - last 24 hr 11/03/19 11/03/19 11/03/19 15:45 15:45 15:45 WBC 15.36 H D RBC 4.66 Hgb 14.0 Hct 42.6 MCV 91.4 MCH 30.0 MCHC 32.9 L RDW Std Deviation 14.3 Plt Count 289 MPV 11.4 H Immature Gran % (Auto) 0.8 H Neut % (Auto) 62.8 Lymph % (Auto) 29.3 [place] % (Auto) 5.8 Eos % (Auto) 0.3 Baso % (Auto) 1.0 H Immature Gran # (Auto) 0.13 H Neut # (Auto) 9.63 H Lymph # (Auto) 4.50 H [place] # (Auto) 0.89 H Eos # (Auto) 0.05 Baso # (Auto) 0.16 Sodium 138 Potassium 4.3 Chloride 100 Carbon Dioxide 23 L Anion Gap 15 BUN 10 Creatinine 0.9 Estimated GFR/1.73 m2 > 60 BUN/Creatinine Ratio 11 Glucose 137 H Calculated Osmolality 277 Calcium 9.8 Total Bilirubin < 0.15 L AST 26 ALT 22 Alkaline Phosphatase 90 Creatine Kinase 107 Troponin T High Sens < 6 Total Protein 8.1 Albumin 4.2 Globulin 3.9 Albumin/Globulin Ratio 1.1 Orders Category Date Time Status Cardiac Monitoring DIRECTED Care 11/03/19 15:30 Active IV Insertion ORDERED Care 11/03/19 15:30 Active Notify MD of + Sepsis Screen NOW Care 11/03/19 15:30 Active Notify Physician As Ordered Care 11/03/19 15:30 Active CHEST-1 VIEW [RAD] Stat Exams 11/03/19 15:30 Completed BLOOD CULTURE [BLDCUL] Stat Lab 11/03/19 15:30 Uncollected CBC WITH DIFF [HEME] Stat Lab 11/03/19 15:45 Completed CK PROFILE [SP CHEM] Stat Lab 11/03/19 15:45 Completed COMPREHENSIVE METABOLIC PANEL [CHEM] Stat Lab 11/03/19 15:45 Completed LACTATE, PLASMA [CHEM] Lab 11/03/19 18:30 Uncollected LACTATE, PLASMA [CHEM] Lab 11/03/19 21:30 Uncollected LACTATE, PLASMA [CHEM] Q3H Lab 11/03/19 15:45 Ordered PROTIME WITH INR [COAG] Stat Lab 11/03/19 15:30 Uncollected PTT [COAG] Stat Lab 11/03/19 15:30 Uncollected TROPONIN T HIGH SENSITIVITY Stat Lab 11/03/19 15:45 Completed URINALYSIS W/POSS RFLX CULT [URINALYSIS] Stat Lab 11/03/19 15:30 Uncollected Oxygen Device Stat Oth 11/03/19 15:30 Active EKG [EKG] Stat Ther 11/03/19 15:37 Draft Result Diagrams: 11/03/19 15:45 11/03/19 15:45 - XRAY 1 XRAY Study: Chest Impression: See EMR Report ( EXAM: CHEST-1 VIEW HISTORY: POSSIBLE SEPSIS TECHNIQUE: Single view COMPARISON: 11/01/2019 FINDINGS: The lungs are well expanded. The heart is not enlarged. The vessels are not distended. There are hazy bilateral infiltrates. No effusion identified. IMPRESSION: Persistent hazy infiltrates with no interval improvement Electronically signed by Alli White 11/03/2019 4:02 PM 11/03/19 1602 Interpreting Physician: Alli White MD Dictated Date/Time: 11/03/19 1601 cc: Wolfgang Trujillo MD; Anitra Garcia) - CONSULTS/PCP/HOSPITALIST Notification #1 *Consult/PCP/Hospitalist*: PLACIDO Francois for Hospitalist Time Discussed: 16:26 Reason/Comments: Dr. Nolen consulted with Priscila about patient Consult Disposition: Will see in ED, Admit Departure - Departure Date of Disposition Decision: 11/03/19 Time of Disposition Decision: 16:28 DIAGNOSIS: Pneumonia Qualifiers: Pneumonia type: due to unspecified organism Laterality: bilateral Lung location: lower lobe of lung Qualified Code(s): J18.1 - Lobar pneumonia, unspecified organism Disposition: ADMITTED INPATIENT 09 Certified Medical Emergency: Emergent Condition: Stable Referrals and Follow-Ups: Anitra Garcia [Primary Care Provider] - - Critical Care Note This patient required my direct & personal management of CC.: No Attestation - Physician/ HINA Attestation Patient care was provided by Advanced Practice Provider:: No The physician spent face to face time with patient:: Yes Advanced Practice Provider documentation review:: Supervising physician onsite and consulted in the evaluation and care of this patient. The physician did have a face to face encounter with the patient. This chart was documented by the indicated scribe, (Britany Mireles Scribe) and accurately reflects the services I performed and decisions made by , Mesfin Nolen MD, as attested by the provider's signature.
[2019-11-03] MEDS: SOLU-MEDROL IV SCH (18:17)
[2019-11-03] MEDS: LEVAQUIN 750 MG/D5W 750 MG/150 ML IVPB IV SCH (18:20)
[2019-11-03 18:24] LABS: INR 0.88
[2019-11-03 18:25] LABS: PTT 25.7 Seconds (22.3-41.8)
[2019-11-03] MEDS: DUONEB (A & A) INH SCH ×2 (19:50→23:34)
[2019-11-03] MEDS ORDERED: PHENERGAN IM ONE (20:54)
[2019-11-03] MEDS ORDERED: IMITREX PO ONE (21:00)
[2019-11-03] MEDS ORDERED: AMBIEN PO SCH (21:00)
--- NOTE | 2019-11-04 01:57 | HISTORY AND PHYSICAL ---
CONSULTING PHYSICIAN: Dr. Newsome. HISTORY OF PRESENT ILLNESS: She presents to the emergency room complaining of wheezing, shortness of breath x6 days. The patient states that she was admitted at [facility] [place], she left against medical advice yesterday morning, went home and then returns today because she is getting worse. Chest x- ray revealed bilateral infiltrates with no improvement from 11/01/2019. PAST MEDICAL HISTORY: 1. Chronic obstructive pulmonary disease. The patient is supposed to have home oxygen, although she does not have insurance and she cannot afford it. 2. Hyperlipidemia. 3. Situational anxiety and depression. 4. Cervical cancer status post mass removal. 5. Obstructive sleep apnea. 6. Gastroesophageal reflux disease. 7. Degenerative disk disease. 8. Herniated disk. 9. Morbid obesity. PAST SURGICAL HISTORY: 1. Appendectomy. 2. Cholecystectomy. 3. C-spine surgery. 4. Back surgery. 5. Cervical mass removal. FAMILY HISTORY: Father had diabetes and [place]. Mother had back surgery. SOCIAL HISTORY: She smokes 1 to 2 packs of cigarettes a day. She denies any alcohol or illicit drug use. She lives with family members. ALLERGIES: 1. Sulfa. 2. Penicillin. 3. Latex. 4. Stadol. 5. Toradol. 6. Iodine. 7. Bleach. 8. Latex. HOME MEDICATIONS: A list will be obtained by the nursing staff and, once verified, will be restarted as appropriate. REVIEW OF SYSTEMS: Discussed with patient, pertinent positives stated in the HPI. She denied any syncope or dizziness, any chest pain or palpitations, any nausea, vomiting, diarrhea, constipation, black or bloody vomitus or stools, any hematuria, dysuria, frequency, urgency. PHYSICAL EXAMINATION: GENERAL: This is a 44-year-old female who is sitting up on the stretcher in the emergency room in no distress. VITAL SIGNS: Blood pressure is 109/50, with a heart rate of 100, respirations are 20, temperature is 98.6 degrees with O2 saturations 96% to 98% on room air. EYES: Pupils equal, round, react to light. EOMs are intact. Sclerae are anicteric. HEENT: Head is normocephalic, atraumatic. Mucous membranes moist. NECK: Supple with trachea midline. CARDIOVASCULAR: Regular rate and rhythm. S1 and S2 appreciated. She no lower extremity edema. Peripheral pulses are palpable x4 extremities. Calves are nontender. PULMONARY: Breath sounds are diminished throughout. She does have expiratory wheezes. Chest rises and falls symmetrically. There is no increased work of breathing noted. GASTROINTESTINAL: Abdomen is soft, nontender, nondistended. Bowel sounds in all 4 quadrants. NEUROLOGIC: She is alert and oriented x3. SKIN: Warm and dry. LABS: WBC is 15 with hemoglobin 14, hematocrit 42.6, and platelets 289,000. Sodium is 138, potassium 4.3, BUN 10, creatinine 0.9 with a glucose of 137. Urinalysis is pending. We will add a urine drug screen. Chest x-ray revealed hazy infiltrates with no interval improvement compared to 11/01/2019. ASSESSMENT AND PLAN: 1.Bibasilar pneumonia. Blood cultures have been repeated. IS.Up in chair w/meals & prn Levaquin and further antibiotics will be culture-driven. 2.COPD exacerbation.supplemental oxygen , bronchodilators, steroids 3. Acute hypoxemic respiratory failure. Supplemental O2. 4. GERD. PPI identify her home medications and continue these as appropriate. For DVT prophylaxis Lovenox. CBC, CMP in the morning. further treatments pending hospital course. Patient was evaluated and plan was discussed with Dr. Newsome. Dictated by PLACIDO Foster for Kodak Ames MD Addendum: Patient seen and examined by myself. Agree with PLACIDO note. It reflects my assessment and plan. Patient is being admitted to hospital for bibasilar pneumonia. Also COPD exacerbation. IV antibiotics and Duoneb q4hrs will be provided. Will monitor patient closely. cc: PLACIDO Foster MD [facility]
[2019-11-04] MEDS: SOLU-MEDROL IV SCH ×2 (02:15→09:23)
[2019-11-04] MEDS: DUONEB (A & A) INH SCH ×6 (03:46→23:17)
[2019-11-04] MEDS: PRILOSEC PO SCH ×2 (05:23→06:23)
[2019-11-04 08:05] LABS: BASO# 0.03 X1000 (0.0-0.2); BASO% 0.2 % (0.0-0.8); EOS# 0.02 X1000 (0.0-0.7); EOS% 0.2 % (0.0-10.0); HEMOGLOBIN 13.8 g/dL (12.0-16.0); IMM GRAN# 0.12 X1000 (0.0-0.04); LYMPH# 2.22 X1000 (1.2-3.4); MCH 29.4 PG (27-31); MCHC 32.1 g/dL (33-37); MCV 91.5 FL (81-99); MONO# 0.54 X1000 (0.11-0.59); MONO% 4.4 % (1.7-9.3); MPV 11.1 FL (7.4-10.4); NEUT# 9.38 X1000 (1.4-6.5); NEUT% 76.2 % (42.2-75.2); PLT 309 X1000 (130-400); RDW 14.5 % (11.5-14.5); WBC 12.31 X1000 (4.8-10.8)
[2019-11-04 08:25] LABS: AGAP 12; ALB/GLOB RATIO 1.1; ALKALINE PHOSPHATASE 86 U/L (32-104); BUN 12 mg/dL (8-22); CALCIUM 9.3 mg/dL (8.8-10.2); CHLORIDE 105 mmol/L (98-107); COSMO 283; CREATININE 0.7 mg/dL (0.5-0.9); ESTIMATED GFR > 60; GLUCOSE 136 mg/dL (70-104); GOT 16 U/L (10-30); GPT 19 U/L (10-36); POTASSIUM 4.8 mmol/L (3.5-5.1); SODIUM 141 mmol/L (136-145); TCO2 24 mmol/L (25-35); TOTAL BILIRUBIN < 0.15 mg/dL (0.20-1.00); TOTAL PROTEIN 7.5 g/dL (6.3-8.3)
[2019-11-04] MEDS: LOVENOX SUBQ SCH (09:22)
[2019-11-04] MEDS ORDERED: TORADOL IV SCH (10:30)
[2019-11-04] MEDS ORDERED: TYLENOL PO PRN (10:31)
[2019-11-04] MEDS: MORPHINE IV PRN ×4 (10:49→21:12)
--- NOTE | 2019-11-04 11:15 | Diag Imaging Result Doc PS360 ---
CT ABDOMEN/PELVIS W/O CONTRAST - 11/04/2019 INDICATION: kidney stones COMPARISON: 02/04/2018 FINDINGS: There is some scattered atelectasis in the lung bases. Heart size is normal with no pericardial effusion. Stable cholecystectomy clips. Otherwise all abdominal organs are normal. No radiodense renal stones. No hydronephrosis or hydroureter. There are appendectomy changes. There is moderate diffuse constipation. No bowel obstruction or inflammation. Urinary bladder, uterus, and rectum are normal. Bones are intact and well mineralized. IMPRESSION: Moderate constipation. Otherwise no acute disease. This exam was performed using automated exposure control, adjustment of mA or kV according to patient size, and/or use of iterative reconstruction technique Electronically signed by Heladio Leahy 11/04/2019 11:13 AM
[2019-11-04] MEDS: SODIUM CHLORIDE 0.9% INJ PRN ×2 (11:33→16:12)
[2019-11-04] MEDS: PHENERGAN IV PRN ×3 (11:33→21:17)
[2019-11-04] MEDS: IMITREX PO PRN (14:30)
--- NOTE | 2019-11-04 14:48 | PROGRESS NOTE ---
DATE: 11/04/2019 SUBJECTIVE: Patient reports breathing a little bit better today but she reports that since yesterday she has pain in her right back that is going to her suprapubic area. She thinks that she may have a kidney stone. She has history of those. She also complains of migraine that has been going on for the last 3 days. OBJECTIVE: Vital Signs: Temperature 97.4 degrees, heart rate 111, respiratory 19, blood pressure 132/70, and O2 saturation 92% on 2 L nasal cannula. General: This is a 44-year-old female lying in bed in no acute distress. Cardiovascular: S1, S2 heard. No murmurs, gallops, or rubs. Regular rate and rhythm. Respiratory: Wheezing all over both pulmonary marley better in comparing with yesterday. Patient is not using any accessory muscles or having work of breathing. Abdomen: Soft. Nontender to palpation. Bowel sounds present. No organomegaly CVA tenderness on the right side noted. Extremities: No clubbing, cyanosis, or edema. Peripheral pulses present in both legs. Neurological: Patient is alert and oriented x3. Moves 4 extremities. LABORATORY DATA: White cell count 12.31, hemoglobin 13.8, hematocrit 43.0, and platelets 309,000 with normal BMP. ASSESSMENT AND PLAN: 1. Acute respiratory failure secondary to bibasilar pneumonia. We will continue with Levaquin. Regarding IV steroids, the patient reports that that makes her sick so will change to prednisone. We will continue with DuoNeb every 4 hours scheduled. 2. History of kidney stones. Patient is experiencing pain on the right side that is going to the suprapubic area so we are going to order a CT of the abdomen with pelvis without contrast because she is allergic to INI contrast. We will see what it shows. 3. Migraines. The patient reports having migraines for the last 3 days so we tried the Imitrex that she takes at home, and we will go from there. 4. Insomnia. Patient reports that Ambien did not work for her so we will change medications to Valium 10 mg p.o. at bedtime. 5. Disposition: We will continue to monitor this patient closely. cc: MD WIN Phelan
[2019-11-04] MEDS: TESSALON PO PRN (16:12)
[2019-11-04] MEDS: LEVAQUIN 750 MG/D5W 750 MG/150 ML IVPB IV SCH (17:54)
[2019-11-04] MEDS ORDERED: VALIUM PO SCH (21:00)
[2019-11-04] MEDS: PREDNISONE PO SCH (21:12)
[2019-11-04] MEDS: OFIRMEV 1000 MG/ISOTONIC SOLN 1,000 MG/100 ML BOTTLE IV SCH ×2 (21:31→23:52)
[2019-11-04] MEDS ORDERED: SOLU-MEDROL IV SCH (22:00)
[2019-11-05] MEDS: MORPHINE IV PRN ×3 (00:05→08:43)
[2019-11-05] MEDS: TESSALON PO PRN (00:05)
[2019-11-05] MEDS: IMITREX PO PRN ×2 (00:09→06:03)
[2019-11-05] MEDS: DUONEB (A & A) INH SCH ×3 (03:36→11:18)
[2019-11-05] MEDS: PHENERGAN IV PRN ×3 (04:32→13:05)
[2019-11-05] MEDS: OFIRMEV 1000 MG/ISOTONIC SOLN 1,000 MG/100 ML BOTTLE IV SCH ×2 (04:32→08:42)
[2019-11-05] MEDS: PRILOSEC PO SCH (06:03)
[2019-11-05 08:37] LABS: BASO# 0.24 X1000 (0.0-0.2); BASO% 1.4 % (0.0-0.8); HEMATOCRIT 44.5 % (37.0-47.0); HEMOGLOBIN 14.3 g/dL (12.0-16.0); IMM GRAN# 0.33 X1000 (0.0-0.04); IMM GRAN% 1.9 % (0.0-0.5); LYMPH# 3.69 X1000 (1.2-3.4); MCH 29.9 PG (27-31); MCHC 32.1 g/dL (33-37); MCV 93.1 FL (81-99); MONO# 0.91 X1000 (0.11-0.59); MONO% 5.2 % (1.7-9.3); MPV 11.1 FL (7.4-10.4); NEUT# 12.43 X1000 (1.4-6.5); NEUT% 70.5 % (42.2-75.2); PLT 300 X1000 (130-400); RBC 4.78 XMIL (4.2-5.4); RDW 14.5 % (11.5-14.5)
[2019-11-05] MEDS: LOVENOX SUBQ SCH (08:43)
[2019-11-05] MEDS: SODIUM CHLORIDE 0.9% INJ PRN ×2 (08:43→13:05)
[2019-11-05] MEDS: PREDNISONE PO SCH (08:43)
[2019-11-05 08:58] VITALS: BP 132/62
[2019-11-05] MEDS ORDERED: DESYREL PO PRN (09:02)
[2019-11-05 09:05] LABS: AGAP 12; BUN 12 mg/dL (8-22); CALCIUM 8.9 mg/dL (8.8-10.2); CHLORIDE 103 mmol/L (98-107); COSMO 284; CREATININE 0.7 mg/dL (0.5-0.9); ESTIMATED GFR > 60; GLUCOSE 124 mg/dL (70-104); POTASSIUM 4.6 mmol/L (3.5-5.1); SODIUM 142 mmol/L (136-145); TCO2 27 mmol/L (25-35)
[2019-11-05] MEDS ORDERED: TYLENOL PO PRN (09:05)
[2019-11-05 09:20] LABS: LYMPHS 22 % (21-51); MONO 4 % (1-9); SEGS 74 % (42-75)
[2019-11-05] MEDS ORDERED: ULTRAM PO PRN (11:54)
--- NOTE | 2019-11-07 22:53 | DISCHARGE SUMMARY ---
ADMISSION DATE: 11/03/2019 DISCHARGE DATE: 11/05/2019 DISCHARGE DIAGNOSES: 1. Pneumonia. 2. Migraines. 3. Chronic pain. 4. Chronic obstructive pulmonary disease with mild exacerbation. 5. Hyperlipidemia. 6. Obstructive sleep apnea. 7. Gastroesophageal reflux disease. 8. Obesity. HOSPITAL COURSE: The patient presented to the ER with complaints of wheezing and dyspnea for 6 days. She had gone to the [place] [facility] the day before and admission was discussed, but she left against medical advice. She returned to the ER because she stated she was getting worse. X-ray showed mild bilateral infiltrates consistent with pneumonia, which was essentially the same as the previous days. The patient was put on empiric antibiotics with Levaquin. She reportedly had little but of wheezing on admission and as going to be started on IV steroids. The patient said she was intolerant of IV steroids, but could take p.o. steroids assistance so she was started on oral prednisone. She was also placed on DuoNebs. Patient's O2 saturations were in the low normal range on admission. She had 1 brief episode of hypoxia overnight on the , which was favored to represent obstructive sleep apnea. Patient has been recommended to have a sleep study and CPAP in the past, but has not done that because of lack of insurance and difficulty paying that. While awake, her oxygenation was good on room air. The patient has had complaints of headache consistent with previous migraines. Improved with Imitrex. She has complained of abdominal pain. A CT was obtained which showed only constipation. She was recommended MiraLAX. The patient's oxygenation was adequate. She was afebrile. Cultures were negative and wheezing was minimal. She was discharged home with oral Levaquin and prednisone. She was also given refills of her previously-prescribed Imitrex and Phenergan at her request. She was instructed to continue [id number] MiraLAX if she needed that for constipation. She was discharged home to follow up with PCP. DISCHARGE VITALS: Temperature 98.1 degrees, pulse 110, respirations were 18, blood pressure 123/62, O2 saturation 93% on room air. DISCHARGE MEDICATIONS: Omeprazole 40 mg p.o. daily, albuterol inhaler as needed, Ambien 5 mg p.o. at bedtime as needed, Imitrex 50 mg p.o. q.2 hours as needed, Levaquin 750 mg p.o. daily, Phenergan 25 mg p.o. every 6 hours as needed, prednisone taper 20 mg daily x3 days, then 10 mg daily x4 days and 5 mg daily for 4 days. Robitussin AC 5 mL p.o. q.4 hours as needed. FOLLOWUP AND PLAN: The patient will be discharged home on oral antibiotic and steroid taper for pneumonia and chronic obstructive pulmonary disease exacerbation. Patient counseled to seek sleep study for likely sleep apnea, whenever she has the funds to do so. Patient to follow up with PCP.
== END 2019-11-05 13:15 | disposition home or self-care (01) | DRG 194 ==
LOC: ED 15:20 → EDIPHOLD 18:36 → SUATTDRO 18:36 → 3N 19:39
PROVIDERS: ATTEND Internal Medicine